=== PATIENT | male | born 1945 | race Caucasian/White ===

== ENCOUNTER 2016-08-30 07:11 | Day surgery (SDC) | payer MEDICARE ==
[2016-08-30] VITALS (9 sets, daily range): BP systolic 136–181; BP diastolic 62–85; PULSE 59–83; RESP 18–20; TEMP 97.5–97.9; O2SAT 94–98
[~2016-08-30] VITALS: Ht 182.9 cm; Wt 93.2 kg
[~2016-08-30 07:11] MED LIST: ASPI81 PO; ATOR20TA PO; CLOP75 PO; DOXA1 PO; FISH1000 PO; FURO20TA PO; GLUCTAB PO; HYDR-3129 PO; LABE300T PO; LISI-357 PO; LORA10TA7 PO; TAB-TAB PO; TRIL135C PO
[2016-08-30] MEDS ORDERED: ASPI81CH CHEW (07:59)
[2016-08-30] MEDS ORDERED: TRIL135C PO (08:00)
[2016-08-30] MEDS ORDERED: ATOR20TA15 PO (08:00)
[2016-08-30] MEDS ORDERED: SODIUM CHLOR 0.9% 1000 ML INJ 1,000 ML IV SCH (08:00)
[2016-08-30 08:01] LABS: AUTOMATED NEUTROPHIL # 2.8 TH/MM3 (1.8-7.7); BASOPHIL # 0.1 TH/MM3 (0-0.2); BASOPHIL % 1.1 % (0.0-2.0); EOSINOPHIL # 0.4 TH/MM3 (0-0.4); EOSINOPHIL % 7.3 % (0.0-4.0); HEMATOCRIT 42.8 % (39.0-51.0); HEMO FLAGS DIFF FINAL; LYMPH % 34.4 % (9.0-44.0); MEAN CELL VOLUME 89.9 FL (80.0-100.0); MEAN CORPUSCULAR HEMOGLOBIN 30.5 PG (27.0-34.0); MEAN CORPUSCULAR HGB CONC 33.9 % (32.0-36.0); MONO % 8.5 % (0.0-8.0); NEUT % 48.7 % (16.0-70.0); PLATELET COUNT 287 TH/MM3 (150-450); RED BLOOD COUNT 4.77 MIL/MM3 (4.50-5.90); RED CELL DISTRIBUTION WIDTH 16.8 % (11.6-17.2); WHITE BLOOD COUNT 5.7 TH/MM3 (4.0-11.0)
[2016-08-30] MEDS ORDERED: PLAV75TA29 PO (08:01)
[2016-08-30] MEDS ORDERED: CARD8TAB PO (08:02)
[2016-08-30] MEDS ORDERED: FURO1TAB62 PO (08:03)
[2016-08-30] MEDS ORDERED: LORA10TA PO (08:04)
[2016-08-30] MEDS ORDERED: LISI-515 PO (08:05)
[2016-08-30] MEDS ORDERED: METF500T PO (08:06)
[2016-08-30] MEDS ORDERED: MULTTAB67 PO (08:07)
[2016-08-30] MEDS ORDERED: FISHCAP4 PO (08:07)
[2016-08-30 08:10] LABS: APTT (PATIENT) 29.3 SEC (24.3-30.1); PROTHROMBIN TIME - PATIENT 11.5 SEC (9.8-11.6)
[2016-08-30 08:14] LABS: BICARBONATE 29.7 MEQ/L (21.0-32.0); POTASSIUM 3.6 MEQ/L (3.5-5.1)
[2016-08-30] MEDS ORDERED: MIDAZOLAM HCL 5 MG/5 ML VIAL ONE (10:13)
[2016-08-30] MEDS ORDERED: fentaNYL CITRATE 250 MCG/5 ML AMP ONE (10:13)
[2016-08-30] MEDS ORDERED: ceFAZolin 2 GM PREMIX 50 ML ONE (10:59)
--- NOTE | 2016-08-30 11:12 | PD.RAD ---
Post Procedure Progress Note Pre Procedure Diagnosis: (1) Bypass graft stenosis Post Procedure Diagnosis: (1) Bypass graft stenosis Procedure Date: Aug 30, 2016 Supervising Radiologist: Ruiz Camacho Anesthesia: Local, Conscious Sedation Plan of Activity Patient to Unit: ROPU Patient Condition: Good Additional Comments: PT s/p pelvic angio. Right external iliac, R-L fem-fem graft and proximal runoff widely patent. 3 [place] ultrasound guided puncture right groin 20cc contrast used See PACS Report for procedural detail/treatment Ruiz Camacho MD Aug 30, 2016 11:12
[2016-08-30] MEDS ORDERED: ACETAMINOPHEN 325 MG TAB PO PRN (11:15)
[2016-08-30] MEDS ORDERED: IODIXANOL 320 MG/ML 50 ML VIAL (for RAD SPEC) I-ARTERIAL ONE (11:34)
--- NOTE | 2016-08-31 10:41 | RADRPT ---
EXAM DATE/TIME: 08/30/2016 10:09 [place] COMPARISON: ANGIOGRAM, RIGHT LEG, October 14, 2012, 9:57. INDICATIONS : Patient presents with claudication in need of right iliac artery evaluation with possible interventio ns. MEDICAL HISTORY : HTN Diabetes CAD CKD PVD Carotid stenosis SURGICAL HISTORY : Fempop bypass Right iliac stent Right rotator cuff Total hip ENCOUNTER: Subsequent ACUITY: > 1 year PAIN SCORE: 0/10 LOCATION: n/a FLUORO TIME: 1.7 minutes ACCESS SITE: Right Femoral artery SEDATION TIME: 30 minutes CONTRAST: 1.) 65 cc Visipaque (iodixanol) MEDICATION(S): 1.) 2 mg midazolam (Versed) IV 2.) 100 mcg fentanyl (Sublimaze) IV PROCEDURE : 1. Ultrasound-guided puncture of the access site. 2. Conscious sedation with continuous EKG and Oximetry monitoring. 3. Angiography of the pelvis. The patient is well known to the interventional radiology service. The patient is presently followed by Dr. Luis Enrique [place]. Ultrasound imaging in the office was performed this demonstrated possible high-gra de stenosis in the distal right external iliac/right common femoral region. A CT angiogram was perfor med however, the patient has a hip arthroplasty which limited evaluation of this area. Risks, benefit s and alternatives to the procedure were explained and verbal and written consent was obtained. The site was prepped in sterile fashion. Full sterile technique was used, including cap, mask, sterile g loves and gown and a large sterile sheet. Hand hygiene and 2% chlorhexidine and/or betadine/alcohol prep was utilized per protocol for cutaneous antisepsis. The skin and subcutaneous tissues were infi ltrated with local anesthetic solution. With ultrasound and fluoroscopic guidance the graft and the right groin was accessed. A 3 [place] dila tor was passed into the distal right external iliac circulation. Multiple angiographic runs of the di stal right external iliac, the patient's right-left --- fem graft and the upper thighs was performed. The patient's right external iliac is widely patent. The anastomosis of the femoral-femoral graft is widely patent. The origin of the patient's right femoral to above-knee popliteal graft is widely olivas nt. The origin of the right profunda femoral is patent. The puncture site was closed with manual pressure and hemostasis was obtained. The patient tolerated the procedure well and there were no complications. Conscious sedation was performed with the prescribed dosages and duration as above. EKG and oximetry remained stable throughout the procedure. CONCLUSION: 1. There is no evidence of stenosis in the patient's distal right external iliac artery, the right ex ternal iliac stent or the graft origins. Ruiz Camacho MD on August 31, 2016 at 10:36 Board Certified Radiologist. This report was verified electronically.
== END 2016-08-30 15:15 | disposition home or self-care (01) ==
LOC: HROP 07:11 → HRIP 07:14 → HROP 15:15
PROVIDERS: ATTEND Surgery Vascular Surgery
DX: I73.9 Peripheral vascular disease, unspecified (principal); I12.9 Hypertensive chronic kidney disease with stage 1 through stage 4 chronic kidney disease, or unspecified chronic kidney disease; N18.9 Chronic kidney disease, unspecified; I25.10 Atherosclerotic heart disease of native coronary artery without angina pectoris; E11.9 Type 2 diabetes mellitus without complications
CPT/HCPCS: 36140; 75710; 76937; 80048; 85025; 85610; 85730; 99152; 99153; C1769; C1894; J0690; J2250; J3010; J7030; Q9967